=== PATIENT | male | born 1970 | race Two or more races ===

== ENCOUNTER 2019-03-24 07:48 | Day surgery (SDC) | payer OTHER ==
[~2019-03-24 07:48] MED LIST: AMLODIPINE-OLM1 EAC2 PO; RIZATRIPTAN10 MG PO; TOPROL XL25 M1 PO; ZESTRIL20 MG PO
== END 2019-03-24 17:35 | disposition home or self-care (01) ==
LOC: CIR.AMB 07:48
DX: D12.8 Benign neoplasm of rectum (principal); D12.9 Benign neoplasm of anus and anal canal; K60.0 Acute anal fissure

== ENCOUNTER 2019-03-30 21:43 | Emergency (ER) | payer OTHER ==
[~2019-03-30] VITALS: Ht 177.8 cm; Wt 102.1 kg
== END 2019-03-31 16:36 | disposition home or self-care (01) ==
LOC: ER 21:43
DX: K60.1 Chronic anal fissure (principal); D12.8 Benign neoplasm of rectum; D12.9 Benign neoplasm of anus and anal canal; K62.5 Hemorrhage of anus and rectum

== ENCOUNTER 2019-04-19 14:45 | Emergency (ER) | payer OTHER ==
[~2019-04-19] VITALS: Ht 180.3 cm; Wt 113.4 kg
== END 2019-04-19 19:03 | disposition home or self-care (01) ==
LOC: ER 14:45
DX: K62.5 Hemorrhage of anus and rectum (principal)